=== PATIENT | female | born 1980 | race Hispanic/Latino ===

== ENCOUNTER 2018-09-19 10:02 | Inpatient (IN) | payer OTHER ==
[2018-09-19 10:52] VITALS: BMI 28.1
[2018-09-19] MEDS ORDERED: Lactated Ringer's 1,000 ML IV ONE (10:53)
[2018-09-19] MEDS ORDERED: Lactated Ringer's 1,000 ML IV SCH (11:00)
[2018-09-19 12:26] LABS: BASO % 0.4 % (0.0-2.0); EOS % 0.2 % (0.0-4.0); HEMOGLOBIN 12.4 g/dL (12.0-16.0); LYMPH # 1.2 K/uL (1.0-4.3); LYMPH % 10.5 % (20.0-40.0); MEAN CORPUSCULAR HEMOGLOBIN 29.8 pg (27.0-31.0); MEAN CORPUSCULAR HGB CONC 34.3 g/dL (33.0-37.0); MEAN PLATELET VOLUME 9.5 fl (7.2-11.7); MONO # 0.6 K/uL (0.0-0.8); MONO % 5.2 % (0.0-10.0); NEUT % 83.7 % (50.0-75.0); RBC 4.16 Mil/uL (3.80-5.20); WHITE BLOOD COUNT 11.9 K/uL (4.8-10.8)
--- NOTE | 2018-09-19 12:31 | OBHP ---
Datetime: 09/19/2018 12:29 IP Adm Impression: Term, intrauterine IP Admit Plan: Admit to unit; Initiate labor protocol Admit Comment, IP Provider: 33 yo G1 at 38+ 4 wks w/ EDC 09/29/2018 by LMP who p/w ctxns x 3 days, b ecame "unbearable" at 6 am, reports vaginal bloody mucus this am, denies LOF, reports FM. PMH: Healthy PSH: None Meds: PNVs and iron All: NKDA Soc hx: Pt denies tobacco, alcohol, and illicit drug use Fam hx: F, p uncle and her sister have heart dz [place] hx: menarche at 17 yo, regular periods, denies STDs and abn paps labs: 02/07/2018 B+, Ab screen neg, CF neg, RPR neg, Rubella positive 05/21/2018 VZV IgG pos 07/10/2018 1 hr glucola 149 07/29/2018 3 hr GTT: FS 70, 1 hr 161, 2 hr 125, 3 hr 102 09/02/2018 GBS neg PE: AFVSS Gen'l: pt appears uncomfrortable during ctxns Heart: RRR Chest: Lungs CTA b/l Abd: soft, NT, gravid Ext: NT VE: [address] Cardozo, checked her at 10:20 am EFM: as above Melbeta as above A/P 38 yo G1 at 38+4 wks admitted to L_D in labor. GBS negative. FHT reactive, reassuring. Pt desires an epidural. Extremities - PN: Normal Abdomen - PN: Normal Back - PN: Normal Lungs - PN: Normal Heart - PN: Normal General - PN: Normal FHR - Baseline A Provider: 120's Membranes, Provider: Intact EGA AdmitDate IP: 38.4 Vital Signs Provider: Reviewed; Within Normal Limits IP Indication for Induction: Not Applicable IP Chief Complaint: Uterine contractions NICHD Variability Prov Fetus A: Moderate 6-25bpm NICHD Accel Fetus A IP Provider: [id number] FHR Category Provider Fetus A: Category I NICHD Decel Fetus A IP Provider: None Dilatation, Provider: 3 Genitourinary Exam: Normal Datetime: 09/19/2018 11:55 HEENT - PN: Normal Contraction Comments Provider: [id number]
[2018-09-19 12:56] VITALS: RESP 20; TEMP 97.9
[2018-09-19] MEDS ORDERED: Fentanyl/Bupivacaine HCl 250 ML EPI ONE (13:14)
[2018-09-19] MEDS ORDERED: Oxytocin 30 UNIT 30 UNITS/500 ML BAG IV ONE ×2 (17:10→20:33)
[2018-09-19] MEDS ORDERED: OXYTOCIN/0.9 % NS 20 UNIT/1,000 ML BAG IV SCH (17:15)
--- NOTE | 2018-09-19 23:44 | OBDS ---
DELIVERY PERSONNEL Delivery Doctor: Raudel Cardozo MD Buffing Machine Operator Semiautomatic: Alison Rutherford RN Anesthesiologist: Xiomara Zapata MD MATERNAL INFORMATION Delivery Anesthesia: Epidural Medications in Delivery: Oxytocin Placenta Cultured: No Maternal Complications: None LABOR SUMMARY EDC: 09/30/2018 00:00 No. Babies in Womb: 1 Attempted: No Labor Anesthesia: None LABOR INFORMATION Reason for Induction: Not Applicable Onset of Labor: 09/19/2018 06:00 Complete Dilatation: 09/19/2018 21:10 Oxytocin: Augmentation Group B Beta Strep: Negative Steroids Given: None Reason Steroids Not Administered: Not Applicable MEMBRANES Membranes Rupture Method: Artificial Rupture of Membranes: 09/19/2018 16:45 Length of Rupture (hrs): 6.43 Amniotic Fluid Color: Clear Amniotic Fluid Amount: Moderate Amniotic Fluid Odor: None STAGES OF LABOR Stage 1 hrs: 15 Stage 1 min: 10 Stage 2 hrs: 2 Stage 2 min: 1 Stage 3 hrs: 0 Stage 3 min: 5 Total Time in Labor hrs: 17 Total Time in Labor min: 16 VAGINAL DELIVERY Episiotomy: None Laceration Extension: N/A Laceration Type: Perineal Other Laceration: Abraision Laceration Repair: Yes Initial Vag Sponge Count: 5 Final Vag Sponge Count: 5 Initial Vag Sharps Count: 2 Final Vag Sharps Count: 2 Sponge Count Correct: Yes Sharps Count Correct: Yes Count Comment: correct BABY A INFORMATION Delivery Date/Time: 09/19/2018 23:11 Method of Delivery: Vaginal Born in Route : No : N/A Forceps: N/A Vacuum Extraction: N/A Shoulder Dystocia : No SHOULDER DYSTOCIA BABY A Infant Delivery Date/Time: 09/19/2018 23:11 PRESENTATION/POSITION BABY A Presentation: Cephalic Cephalic Presentation: Vertex PLACENTA INFORMATION BABY A Placenta Delivery Time : 09/19/2018 23:16 Placenta Method of Delivery: Spontaneous Placenta Status: Delivered SCORES BABY A Heart Rate 1 min: >100 bpm Resp Effort 1 min: Good Cry Reflex Irritability 1 min: Cough or Sneeze or Pulls Away Muscle Tone 1 min: Active Motion Color 1 min: Body [place], Extremities Blue Resuscitation Effort 1 min: Tactile Stimulation SCORE 1 MIN: 9 Heart Rate 5 min: >100 bpm Resp Effort 5 min: Good Cry Reflex Irritability 5 min: Cough or Sneeze or Pulls Away Muscle Tone 5 min: Active Motion Color 5 min: Body [place], Extremities Blue Resuscitation Effort 5 min: Tactile Stimulation SCORE 5 MIN: 9 INFORMATION BABY A Gestational Age at Delivery: 38.4 Gestational Status: Term Infant Outcome : Liveborn Condition : Stable Sex: Male IDENTIFICATION/MEDS BABY A ID Band Number: [id number] ID Band Location: Left Leg; Left Arm CORD INFORMATION BABY A No. Cord Vessels: 3 Nuchal Cord : Around Neck x1, Loose Cord Blood Taken: Yes Suction: Mouth; Nose ASSESSMENT BABY A Infant Complications: None Physical Findings at Delivery: Within Normal Limits Respirations: Appears Normal Upholstery Cutter/ALS Called : No Transferred To: Remains with Mother
[2018-09-19] MEDS ORDERED: OXYTOCIN/0.9 % NS 20 UNIT/1,000 ML BAG IV ONE (23:46)
[2018-09-19] MEDS ORDERED: Oxycodone/Acetaminophen 5/325 mg Tab PO PRN ×2 (23:46)
[2018-09-19] MEDS ORDERED: Benzocaine/Menthol SPRAY TOP PRN (23:46)
[2018-09-20] MEDS ORDERED: Oxycodone/Acetaminophen 5/325 mg Tab PO PRN ×2 (01:53)
[2018-09-20] MEDS ORDERED: Benzocaine/Menthol SPRAY TOP PRN (01:53)
[2018-09-20 06:40] LABS: HEMOGLOBIN 10.5 g/dL (12.0-16.0); MEAN CELL VOLUME 89.7 fl (81.0-99.0); MEAN CORPUSCULAR HEMOGLOBIN 29.9 pg (27.0-31.0); MEAN CORPUSCULAR HGB CONC 33.3 g/dL (33.0-37.0); RBC 3.5 Mil/uL (3.80-5.20); RED CELL DISTRIBUTION WIDTH 12.4 % (11.5-14.5); WHITE BLOOD COUNT 11.7 K/uL (4.8-10.8)
[2018-09-20] MEDS ORDERED: Influenza Vaccine 60 MCG/0.5 ML SYR (3 yr & up) IM ONE (09:00)
--- NOTE | 2018-09-20 10:02 | OBPPN ---
Datetime: 09/20/2018 09:49 PP Pain Prov: Within normal limits PP Nausea Prov: Denies PP Flatus Prov: Yes PP BM Prov: No PP Breasts Prov: Normal PP Heart Prov: Normal PP Lungs Prov: Normal PP Abdomen/Uterus Prov: Normal PP Lochia Prov: Normal PP Vulva/Perineum Prov: Normal PP CVA Tenderness Prov: Normal PP Extremities Prov: Normal PP Progress Prov: Normal PP Impression Prov: Normal progression PP Plan Prov: Continue present management PP Progress Note Prov: stable ppd1 continue present care IP PP Procedures: None Vital Signs Provider PP: Reviewed; Within Normal Limits
--- NOTE | 2018-09-21 12:45 | OBPPN ---
Datetime: 09/21/2018 12:41 PP Pain Prov: Within normal limits PP Pain Prov comment: No SOB, chest or leg pains PP Nausea Prov: Denies PP Flatus Prov: Yes PP BM Prov: Yes PP Nausea Prov comment: voiding well PP Breasts Prov: Normal PP Lungs Prov: Normal PP Abdomen/Uterus Prov: Abnormal PP Lochia Prov: Not Done PP Vulva/Perineum Prov: Not Done PP CVA Tenderness Prov: Normal PP Extremities Prov: Normal PP C/S Incision Prov: Not Applicable PP Progress Prov: Normal PP Comments Phys Exam Prov: breast not engorged, breast feeding; Abd soft nd, fundus firm below the umb. NT Ext no edema or calf tenderness. PP Impression Prov: Normal progression PP Plan Prov: Discharge PP Progress Note Prov: D/C home with instructions and follow up office 4-6 wks IP PP Procedures: None Vital Signs Provider PP: Reviewed
--- NOTE | 2018-09-21 12:47 | OBDCSUM ---
Datetime: 09/21/2018 12:45 Discharged to, Provider: Home Follow up at, Provider: Dr Cardozo Disch Instr Activity: Bedrest; May be up to bathroom; May be up for meals; May Shower Disch Instr Diet: Regular Discharge Instructions, Provider: Routine instructions given Discharge Diagnosis, Provider: Term Delivered Discharge Time: 09/21/2018 12:46 Follow up in weeks, Provider: 4-6 wks Disch Referrals: None Contraception discussed, Prov: Yes Disch Activity Restrictions: No exercising; No lifting; No driving; Minimize walking; Minimize stair -climbing; No sexual activity; Nothing in vagina - [place], tampons, douche Contraception after Delivery: Undecided Datetime: 09/21/2018 10:07 Discharged to, Provider: Home Follow up at, Provider: Dr. Cardozo Disch Instr Activity: Normal activity; May be up to bathroom; May be up for meals; May Shower Disch Instr Diet: Regular Discharge Time: 09/21/2018 11:30 Follow up in weeks, Provider: in 5 to 6 weeks Disch Referrals: None Disch Activity Restrictions: No lifting; No sexual activity; Nothing in vagina - [place], tampon s, douche
[2018-09-21 23:17] VITALS: BP 122/85; PULSE 92; O2SAT 83
== END 2018-09-21 13:14 | disposition home or self-care (01) | DRG 373 ==
LOC: H.EROB2 10:02 → H.L&D 10:53 → H.EROB 11:00 → UNDODISIN 11:28 → H.OB/GYN 09-20 01:30
PROVIDERS: ADMIT Specialist; ATTEND Specialist
PROC: 10E0XZZ Delivery of Products of Conception, External Approach (ICD-10-PCS; principal; 2018-09-19)
PROC: 4A1HXCZ Monitoring of Products of Conception, Cardiac Rate, External Approach (ICD-10-PCS; 2018-09-19)
DX: O69.81X0 Labor and delivery complicated by cord around neck, without compression, not applicable or unspecified (principal); Z3A.38 38 weeks gestation of pregnancy; Z37.0 Single live birth